=== PATIENT | female | born 1950 | race Caucasian/White ===

== ENCOUNTER 2020-05-10 15:33 | Emergency (ER) | payer MEDICAID, MEDICARE ==
[~2020-05-10] VITALS: Ht 160 cm; Wt 126.1 kg
[~2020-05-10 15:33] MED LIST: ACET-75 PO; ARIP2TAB20 PO; ASPI-1264 PO; ESTR-4 PO; HYDR12.55 PO; MELA3TAB39 PO; OXYC10TA47 PO; RANI-366 PO; ZOLP10TA5 PO
[2020-05-10 15:40] VITALS: BP 149/104
[2020-05-10] MEDS ORDERED: CLIN300C97 PO (16:12)
== END 2020-05-10 16:33 | disposition home or self-care (01) ==
LOC: ER 15:34
DX: K04.7 Periapical abscess without sinus (principal); K08.89 Other specified disorders of teeth and supporting structures; I10 Essential (primary) hypertension; E11.9 Type 2 diabetes mellitus without complications; Z98.890 Other specified postprocedural states; Z72.89 Other problems related to lifestyle; Z56.0 Unemployment, unspecified; Z88.2 Allergy status to sulfonamides; Z88.1 Allergy status to other antibiotic agents; Z88.0 Allergy status to penicillin; Z79.82 Long term (current) use of aspirin; Z79.2 Long term (current) use of antibiotics; Z79.899 Other long term (current) drug therapy
CPT/HCPCS: 99283

== ENCOUNTER 2020-09-05 07:57 | Emergency (ER) | payer MEDICARE ==
[~2020-09-05] VITALS: Ht 162.6 cm; Wt 128.6 kg
[2020-09-05] MEDS ORDERED: ondansetron/PF 4mg/2ml inj IV ONE (08:25)
[2020-09-05] MEDS ORDERED: morphine 4 MG/ML inj SYRINge IV ONE (08:25)
[2020-09-05] MEDS ORDERED: normal saline 1000ML IV soln IVB ONE (08:25)
[2020-09-05 09:00] VITALS: BP 157/85
[2020-09-05] MEDS ORDERED: iohexol 300mg/ml 100ml inj. ONE (09:07)
[2020-09-05] MEDS ORDERED: ONDA4TAB6 PO (10:13)
[2020-09-05] MEDS ORDERED: HYDR-3964 PO (10:13)
== END 2020-09-05 15:50 | disposition home or self-care (01) ==
LOC: ER 07:58
DX: S80.11XA Contusion of right lower leg, initial encounter (principal); S83.104A Unspecified dislocation of right knee, initial encounter; M25.561 Pain in right knee; I10 Essential (primary) hypertension; E11.9 Type 2 diabetes mellitus without complications; Z98.890 Other specified postprocedural states; Z72.89 Other problems related to lifestyle; Z59.0 Homelessness; Z88.2 Allergy status to sulfonamides; Z88.1 Allergy status to other antibiotic agents; Z88.0 Allergy status to penicillin; Z79.82 Long term (current) use of aspirin; Z79.899 Other long term (current) drug therapy; W19.XXXA Unspecified fall, initial encounter; Y93.89 Activity, other specified; Y92.89 Other specified places as the place of occurrence of the external cause; Y99.8 Other external cause status
CPT/HCPCS: 29505; 73701; 96374; 96375; 99285; J2270; J2405; J7030; Q9967

== ENCOUNTER 2023-06-10 16:01 | Emergency (ER) | payer MEDICARE ==
[~2023-06-10] VITALS: Ht 162.6 cm; Wt 113.2 kg
[~2023-06-10 16:01] MED LIST changes: +ONDA4TAB6 PO
[2023-06-10 16:43] LABS: BASOPHILS # (AUTO) 0.1 X10'3 (0-0.2); BASOPHILS % (AUTO) 0.8 % (0-1); EOSINOPHILS # (AUTO) 0.1 X10'3 (0-0.9); EOSINOPHILS % (AUTO) 1.3 % (0-6); HEMATOCRIT 51.2 % (35.0-45.0); HEMOGLOBIN 17.3 g/dl (12.0-16.0); LYMPHOCYTES # (AUTO) 1.6 X10'3 (1.1-4.8); LYMPHOCYTES % (AUTO) 17.1 % (21-51); MEAN CORPUSCULAR HGB CONC 33.7 g/dL (33.0-36.5); MEAN CORPUSCULAR VOLUME 88.9 FL (78-98); MEAN PLATELET VOLUME 8.5 FL (7.4-10.4); MONOCYTES # (AUTO) 0.4 X10'3 (0-0.9); MONOCYTES % (AUTO) 4.9 % (2-12); NEUTROPHILS % (AUTO) 75.9 % (42-75); PLATELET COUNT 234 X10'3 (140-440); RED BLOOD COUNT 5.76 X10'6 (4.20-5.60); RED CELL DISTRIBUTION WIDTH 14.4 % (11.5-14.5); WHITE BLOOD COUNT 9.2 X10'3 (4.5-11.0)
[2023-06-10 17:04] LABS: ANION GAP 8 (8-16); BLOOD UREA NITROGEN 21 MG/DL (7-18); BUN/CREATININE RATIO 20.6 (10.0-20.0); CALCIUM 9.1 MG/DL (8.5-10.1); CHLORIDE 102 MMOL/L (99-107); CREATININE 1.02 MG/DL (0.40-0.90); GLUCOSE 309 MG/DL (70-104); POTASSIUM 4.3 MMOL/L (3.5-5.1); PRO BRAIN NATRIURETIC PEPTIDE 78 PG/ML (0-125); SODIUM 137 MMOL/L (135-145); eCRCL 44 ML/MIN; eGFR 53 ML/MIN
[2023-06-10] MEDS: LORazepam 2 mg/ml vial IV ONE (17:33)
[2023-06-10] MEDS: diphenhydrAMINE 50 mg/ml inj IV ONE (17:33)
[2023-06-10 17:45] VITALS: TEMP 98.4
[2023-06-10 19:02] VITALS: BP 149/91; PULSE 100; RESP 18; O2SAT 91
== END 2023-06-10 19:06 | disposition home or self-care (01) ==
LOC: ER 16:02
DX: R06.02 Shortness of breath (principal); T43.215A Adverse effect of selective serotonin and norepinephrine reuptake inhibitors, initial encounter; Y92.89 Other specified places as the place of occurrence of the external cause
CPT/HCPCS: 36415; 71045; 80048; 83880; 84484; 85025; 93005; 96374; 96375; 99285; J1200; J2060

== ENCOUNTER 2023-09-08 08:40 | Emergency (ER) | payer MEDICARE ==
[~2023-09-08] VITALS: Ht 162.6 cm; Wt 97.5 kg
[2023-09-08 11:52] LABS: BILIRUBIN,URINE NEGATIVE (Neg); CLARITY,URINE CLEAR (Clear); COLOR,URINE YELLOW (Yellow); GLUCOSE, URINE >=1000 mg/dl (Neg); KETONES,URINE NEGATIVE (Neg); LEUKOCYTE ESTERASE ,URINE NEGATIVE (Neg); NITRITES, URINE POSITIVE (Neg); OCCULT BLOOD,URINE NEGATIVE (Neg); PH,URINE 5.5 (4.8-8.0); PROTEIN,URINE NEGATIVE (Neg); UROBILINOGEN,URINE 0.2 E.U/dL (0.2-1.0)
[2023-09-08 11:58] LABS: UA COLLECTION TYPE CLN CATCH MIDSTREAM
[2023-09-08 12:05] LABS: MUCUS STRANDS FEW /LPF (Neg)
[2023-09-08 12:07] LABS: BACTERIA,URINE 3+ /HPF (Neg); RBC,URINE 0-2 /HPF (0-2); WBC,URINE 20-30 /HPF (0-4)
[2023-09-08 12:12] LABS: SQUAMOUS EPITHELIAL CELL,UR MANY /LPF (FEW)
[2023-09-08 12:59] LABS: APTT 23 SECONDS (22-32); PROTHROMBIN TIME 9.6 SECONDS (9.0-12.0)
[2023-09-08 13:03] LABS: BASOPHILS # (AUTO) 0.1 X10'3 (0-0.2); BASOPHILS % (AUTO) 0.5 % (0-1); EOSINOPHILS # (AUTO) 0.1 X10'3 (0-0.9); HEMATOCRIT 49.6 % (35.0-45.0); HEMOGLOBIN 16.4 g/dl (12.0-16.0); INR 0.9 INR; LYMPHOCYTES # (AUTO) 1.6 X10'3 (1.1-4.8); LYMPHOCYTES % (AUTO) 12.5 % (21-51); MEAN CORPUSCULAR HEMOGLOBIN 30.4 PG (27.0-31.0); MEAN CORPUSCULAR HGB CONC 33.1 g/dL (33.0-36.5); MEAN CORPUSCULAR VOLUME 91.9 FL (78-98); MEAN PLATELET VOLUME 9.3 FL (7.4-10.4); MONOCYTES # (AUTO) 0.5 X10'3 (0-0.9); MONOCYTES % (AUTO) 4.3 % (2-12); NEUTROPHILS # (AUTO) 10.4 X10'3 (1.8-7.7); NEUTROPHILS % (AUTO) 81.7 % (42-75); PLATELET COUNT 257 X10'3 (140-440); RED BLOOD COUNT 5.39 X10'6 (4.20-5.60); RED CELL DISTRIBUTION WIDTH 13.8 % (11.5-14.5); WHITE BLOOD COUNT 12.8 X10'3 (4.5-11.0)
[2023-09-08 13:04] LABS: ALBUMIN 3.7 G/DL (3.4-5.0); ANION GAP 11 (8-16); BLOOD UREA NITROGEN 23 MG/DL (7-18); BUN/CREATININE RATIO 26.4 (10.0-20.0); CALCIUM 8.9 MG/DL (8.5-10.1); CHLORIDE 101 MMOL/L (99-107); CREATININE 0.87 MG/DL (0.40-0.90); GLUCOSE 244 MG/DL (70-104); LIPASE 24 U/L (16-77); POTASSIUM 4.4 MMOL/L (3.5-5.1); SODIUM 136 MMOL/L (135-145); TOTAL CARBON DIOXIDE 23.8 MMOL/L (24-32); eCRCL 50 ML/MIN; eGFR 64 ML/MIN
[2023-09-08] MEDS: normal saline 1000ML IV soln IVB ONE (13:12)
[2023-09-08] MEDS: morphine 2 MG/ML inj. syringe IV PRN (13:13)
[2023-09-08] MEDS: DOXYCYCLINE 100MG CAPSULE PO STA (14:14)
[2023-09-08] MEDS ORDERED: NAPR-56 PO (15:42)
[2023-09-08] MEDS ORDERED: DOXY-1 PO (15:42)
[2023-09-08] MEDS: ketorolac tromethamine 15mg/ml inj. IV ONE (16:55)
[2023-09-08 18:10] VITALS: BP 142/87; PULSE 80; RESP 14; TEMP 97.9; O2SAT 100
== END 2023-09-08 18:13 | disposition home or self-care (01) ==
LOC: ER 08:41
DX: N39.0 Urinary tract infection, site not specified (principal); M54.50 Low back pain, unspecified; D35.01 Benign neoplasm of right adrenal gland; I10 Essential (primary) hypertension; E11.9 Type 2 diabetes mellitus without complications; M79.7 Fibromyalgia; Z72.89 Other problems related to lifestyle; Z88.0 Allergy status to penicillin; Z88.2 Allergy status to sulfonamides; Z88.8 Allergy status to other drugs, medicaments and biological substances; Z79.82 Long term (current) use of aspirin; Z79.899 Other long term (current) drug therapy; Z79.1 Long term (current) use of non-steroidal anti-inflammatories (NSAID)
CPT/HCPCS: 36415; 74176; 76770; 80048; 81001; 83690; 83735; 84484; 85025; 85610; 85730; 93005; 96361; 96374; 96375; 96376; 99285; J1885; J2270; J7030

== ENCOUNTER 2023-09-16 04:12 | Emergency (ER) | payer MEDICARE ==
[~2023-09-16] VITALS: Ht 160 cm; Wt 115.5 kg
[~2023-09-16 04:12] MED LIST changes: +DOXY-1 PO; +NAPR-56 PO
[2023-09-16 04:27] VITALS: TEMP 99
[2023-09-16] MEDS: acetaminophen 1,000mg/100ml IV 100 ML IV ONE (05:16)
[2023-09-16] MEDS: ondansetron/PF 4mg/2ml inj IV ONE (05:16)
[2023-09-16] MEDS: morphine 4 MG/ML inj SYRINge IV ONE (05:17)
[2023-09-16] MEDS: orphenadrine citrate 60mg/2ml inj. IM ONE (05:20)
[2023-09-16 08:50] VITALS: BP 158/88; PULSE 74; RESP 18; O2SAT 95
== END 2023-09-16 08:53 | disposition home or self-care (01) ==
LOC: ER 04:13
DX: S29.012A Strain of muscle and tendon of back wall of thorax, initial encounter (principal); I10 Essential (primary) hypertension; E11.9 Type 2 diabetes mellitus without complications; Z88.2 Allergy status to sulfonamides; Z88.1 Allergy status to other antibiotic agents; Z88.0 Allergy status to penicillin; Z79.899 Other long term (current) drug therapy; Z79.82 Long term (current) use of aspirin; X58.XXXA Exposure to other specified factors, initial encounter; Y93.89 Activity, other specified; Y92.89 Other specified places as the place of occurrence of the external cause; Y99.8 Other external cause status
CPT/HCPCS: 96372; 96374; 96375; 99285; J0131; J2270; J2360; J2405

== ENCOUNTER 2023-10-31 10:43 | Emergency (ER) | payer MEDICARE ==
[~2023-10-31] VITALS: Ht 160 cm; Wt 115.0 kg
[~2023-10-31 10:43] MED LIST changes: -DOXY-1 PO; -NAPR-56 PO
[2023-10-31 11:12] VITALS: BP 136/73; PULSE 83; O2SAT 97
[2023-10-31 12:22] VITALS: RESP 14
[2023-10-31] MEDS: ketorolac trometh. 30mg/ml inj. IM ONE (12:22)
[2023-10-31] MEDS: LIDOcaine 5% patch TP ONE (12:23)
[2023-10-31] MEDS ORDERED: LIDO700A32 TD (12:36)
[2023-10-31 12:50] VITALS: TEMP 98.7
== END 2023-10-31 12:51 | disposition home or self-care (01) ==
LOC: ER 10:44
DX: M94.0 Chondrocostal junction syndrome [Tietze] (principal); I10 Essential (primary) hypertension; E11.9 Type 2 diabetes mellitus without complications; Z88.2 Allergy status to sulfonamides; Z88.1 Allergy status to other antibiotic agents; Z88.0 Allergy status to penicillin; Z79.899 Other long term (current) drug therapy; Z79.82 Long term (current) use of aspirin
CPT/HCPCS: 71045; 96372; 99283; J1885

== ENCOUNTER 2024-06-20 16:16 | Emergency (ER) | payer MEDICARE ==
[~2024-06-20] VITALS: Ht 162.6 cm; Wt 116.0 kg
[~2024-06-20 16:16] MED LIST changes: -ARIP2TAB20 PO; +ARIP2TAB67 PO; +LIDO700A32 TD
[2024-06-20 16:18] VITALS: TEMP 98
[2024-06-20 18:03] VITALS: BP 157/97; PULSE 97; RESP 18; O2SAT 96
== END 2024-06-20 18:42 | disposition home or self-care (01) ==
LOC: ER 16:17
DX: S40.012A Contusion of left shoulder, initial encounter (principal); E11.9 Type 2 diabetes mellitus without complications; I10 Essential (primary) hypertension; M79.7 Fibromyalgia; Z88.2 Allergy status to sulfonamides; Z88.1 Allergy status to other antibiotic agents; Z88.0 Allergy status to penicillin; Z79.82 Long term (current) use of aspirin; Z79.899 Other long term (current) drug therapy; Z98.890 Other specified postprocedural states; Z72.89 Other problems related to lifestyle; Z56.0 Unemployment, unspecified; W18.39XA Other fall on same level, initial encounter; Y93.89 Activity, other specified; Y92.89 Other specified places as the place of occurrence of the external cause; Y99.8 Other external cause status
CPT/HCPCS: 73030; 99284; A4565

== ENCOUNTER 2025-02-13 10:03 | Outpatient (CLI) | payer MEDICARE ==
[~2025-02-13] VITALS: Ht 161.3 cm; Wt 108.4 kg
[~2025-02-13 10:03] MED LIST changes: -ACET-75 PO; +ALBU8HFA PO; +AMLO5TAB16 PO; -ARIP2TAB67 PO; -ASPI-1264 PO; +ASPI81TA52 PO; +ATOR20TA66 PO; +CARV-49 PO; +CYCL-394 PO; -ESTR-4 PO; +GABA-535 PO; +HYDR-3968 PO; -HYDR12.55 PO; +INSU100C10 SQ; +LANTUS SUBCUT; +LEFL20TA PO; +LEVOTHYROXINE PO; -LIDO700A32 TD; +LOSA50TA64 PO; -MELA3TAB39 PO; +MELO-100 PO; +NITR0.4T51 SL; -ONDA4TAB6 PO; -OXYC10TA47 PO; +PRED5TAB PO; -RANI-366 PO; +TRAM50TA2 PO; -ZOLP10TA5 PO
[2025-02-13] MEDS: albuterol 2.5 MG/3 ML nebule NEB ONE (10:54)
[2025-02-13 10:58] VITALS: PULSE 95; RESP 16; O2SAT 96
[2025-02-13 11:30] VITALS: PULSE 96; RESP 18
--- NOTE | 2025-02-13 13:54 | PROCEDURE NOTE - Respiratory ---
Procedure Note-Respiratory Procedure Name: This is a spirometry study dated February 13, 2025. The spirometry study was performed both before and after inhaled bronchodilator. Spirometry measurements: Both the forced vital capacity and the FEV1 measurements are normal. The FEV1 ratio is normal. The flow rate measurements are normal. After inhaled bronchodilator there is not much change in the flow volume curve. Conclusion: Normal spirometry study. We have no previous studies for comparison. MIGUEL BONNER MD Feb 13, 2025 13:54
== END 2025-02-13 23:59 | disposition home or self-care (01) ==
LOC: RT 10:03
PROVIDERS: ATTEND Physician Assistant
DX: R06.02 Shortness of breath (principal)
CPT/HCPCS: 94060; 94760